=== PATIENT | female | born 1975 | race African-American/Black ===

== ENCOUNTER 2019-11-15 02:15 | Emergency (ER) | payer OTHER ==
[2019-11-15 02:50] VITALS: BMI 35.0
--- NOTE | 2019-11-15 04:17 | PDOC ---
Attending Attestation - Resident Resident Name: Mimi Bañuelos - ED Attending Attestation I have performed the following: I have examined & evaluated the patient, The case was reviewed & discussed with the resident, I agree w/resident's findings & plan - HPI HPI: 11/16/19 20:21 Pt comes for flu like symptoms. However afebrile in the ER - Physicial Exam PE: 11/15/19 07:01 Agree with resident exam Pt appears well. NAD Cough and cold; no focal findings HEENT normal lungs CTAB no flank pain neuro no deficits. - Medical Decision Making 11/15/19 06:18 Rapid strep and flu are pending Pt signed out to the day team for disposition.
[2019-11-15] MEDS ORDERED: DEXAMETHASONE SOD PHOSPHATE 10 MG/1 ML VIAL IM ONE (05:05)
[2019-11-15] MEDS ORDERED: IBUPROFEN 100 MG/5 ML UNIT DOSE CUPS PO ONE (05:05)
[2019-11-15] MEDS ORDERED: LIDOCAINE VISCOUS 2% ORAL/TOP 20 ML UNIT-DOSE CUP MM ONE (05:05)
[2019-11-15] MEDS ORDERED: LIDOCAINE VISCOUS 2% ORAL/TOP 20 ML UNIT-DOSE CUP ONE (05:10)
[2019-11-15] MEDS ORDERED: IBUPROFEN 600 MG TABLET (FP) PO ONE (05:11)
[2019-11-15] MEDS ORDERED: DEXAMETHASONE SOD PHOSPHATE 10 MG/1 ML VIAL ONE (05:11)
--- NOTE | 2019-11-15 05:52 | PDOC ---
History of Present Illness - General Chief Complaint: Sore Throat Stated Complaint: SORE THROAT Time Seen by Provider: 11/15/19 04:02 - History of Present Illness Initial Comments: 11/15/19 05:50 44 y/o F no significant medical hx, presenting with sore throat of 5 days duration. negative (fevers, cough, chills, fever, sick contacts) positive (pain with swallowing, right sided facial and neck throbbing pain). 11/15/19 06:29 Past History - Past Medical History Allergies/Adverse Reactions: Allergies Allergy/AdvReac Type Severity Reaction Status Date / Time No Known Allergies Allergy Verified 11/15/19 02:41 Home Medications: Ambulatory Orders NK [No Known Home Medication] 11/15/19 COPD: No - Immunization History Immunization Up to Date: Yes - Psycho Social/Smoking Cessation Hx Smoking History: Never smoked Have you smoked in the past 12 months: No Information on smoking cessation initiated: No Hx Alcohol Use: No Drug/Substance Use Hx: No Review of Systems - Review of Systems Constitutional: No: Chills, Fever HEENTM: No: Eye Pain, Blurred Vision Respiratory: No: Cough, Shortness of Breath Cardiac (ROS): No: Chest Pain, Lightheadedness ABD/GI: No: Nausea, Vomiting : No: Burning, Dysuria, Incontinence Musculoskeletal: No: Back Pain, Joint Pain Integumentary: No: Bruising, Change in Color Neurological: Yes: Headache *Physical Exam - Vital Signs Last Vital Signs Temp Pulse Resp BP Pulse Ox 98.8 F 89 20 148/97 98 11/15/19 02:29 11/15/19 02:29 11/15/19 02:29 11/15/19 02:29 11/15/19 02:29 - Physical Exam 11/15/19 05:46 GENERAL: Awake, alert, and fully oriented, in no acute distress HEAD: No signs of trauma, normocephalic, atraumatic EYES: PERRLA, EOMI, sclera anicteric, conjunctiva clear ENT: Auricles normal inspection, hearing grossly normal, nares patent, oropharynx clear without exudates. uvula deviation to the left no muffled voice/stridor. tonsilla +uvula erythema. NECK: Normal ROM, supple, tender right submental lymph nodes. JVD, or masses LUNGS: No distress, speaks full sentences, clear to auscultation bilaterally HEART: Regular rate and rhythm, normal S1 and S2, no murmurs, rubs or gallops, peripheral pulses normal and equal bilaterally. ABDOMEN: Soft, nontender, normoactive bowel sounds. No guarding, no rebound. No masses EXTREMITIES : Normal inspection, Normal range of motion, no edema. No clubbing or cyanosis NEUROLOGICAL: Cranial nerves II through XII grossly intact. Normal speech, no focal sensorimotor deficits SKIN: Warm, Dry, normal turgor, no rashes or lesions noted ED Treatment Course - Medications Given in the ED: ED Medications Discontinued Medications Generic Name Dose Route Start Last Admin Trade Name Dwayneq PRN Reason Stop Dose Admin Dexamethasone Sodium Phosphate 10 mg 11/15/19 05:05 11/15/19 05:17 Decadron Injection - IM 11/15/19 05:06 10 mg ONCE ONE Administration Ibuprofen 600 mg 11/15/19 05:05 11/15/19 05:33 Motrin Oral Suspension - PO 11/15/19 05:06 600 mg ONCE ONE Administration Lidocaine HCl 20 ml 11/15/19 05:05 11/15/19 05:17 Xylocaine 2% Viscous Oral - MM 11/15/19 05:06 20 ml ONCE ONE Administration Medical Decision Making - Medical Decision Making 11/15/19 05:52 44 y/o F no significant medical hx, presenting with sore throat of 5 days duration -strep throat -flu swab - Meds: viscous lidocaine, liquid motrin, decadron. 11/15/19 06:06 Pt feeling a little better after medications lab results pending. Discharge - Discharge Information Problems reviewed: Yes Clinical Impression/Diagnosis: Sore throat Condition: Stable Disposition: HOME - Admission No - Follow up/Referral Referrals: Jose Sarkar MD [Primary Care Provider] - - Patient Discharge Instructions Patient Printed Discharge Instructions: Sore Throat Additional Instructions: You were seen in the ER for a sore throat You may take ibuprofen 600mg every 6 hours for pain control; take 3 of the 200mg pills you have at home You may drink warm liquids and use cough drops for further pain control and comfort Follow up with your primary care doctor in the next 2-3 days. RETURN TO THE ER -if you develop fevers, chills, chest pain , coughing. -worsening of today's symptoms. - Post Discharge Activity
[2019-11-15 07:52] VITALS: BP 126/83; PULSE 78; TEMP 98.2
--- NOTE | 2019-11-15 07:57 | PDOC ---
*Physical Exam - Vital Signs Last Vital Signs Temp Pulse Resp BP Pulse Ox 98.2 F 78 20 126/83 99 11/15/19 07:00 11/15/19 07:00 11/15/19 07:00 11/15/19 07:00 11/15/19 07:00 - Physical Exam 11/15/19 08:21 Gen: aaox3, nad heent: posterior pharynx with mild erythema, no exudates, no lymphadenopathy, no stridor heart: +s1s2 reg lungs: cta b/l abd: soft, nt/nd +bs ext: no c/c/e ED Treatment Course - Medications Given in the ED: ED Medications Discontinued Medications Generic Name Dose Route Start Last Admin Trade Name Dwayneq PRN Reason Stop Dose Admin Dexamethasone Sodium Phosphate 10 mg 11/15/19 05:05 11/15/19 05:17 Decadron Injection - IM 11/15/19 05:06 10 mg ONCE ONE Administration Ibuprofen 600 mg 11/15/19 05:05 11/15/19 05:33 Motrin Oral Suspension - PO 11/15/19 05:06 600 mg ONCE ONE Administration Lidocaine HCl 20 ml 11/15/19 05:05 11/15/19 05:17 Xylocaine 2% Viscous Oral - MM 11/15/19 05:06 20 ml ONCE ONE Administration Medical Decision Making - Medical Decision Making 11/15/19 08:20 a/p: 44yo female with sore throat since sunday -pt signed out from the night team pending strep and flu swab -both strep and flu are neg -pt states sore throat improved with meds -pt with pharyngitis -redness, no exudates on posterior pharynx -stable for dc to home Discharge - Discharge Information Problems reviewed: Yes Clinical Impression/Diagnosis: Sore throat Condition: Stable Disposition: HOME - Admission No - Follow up/Referral Referrals: Jose Sarkar MD [Primary Care Provider] - - Patient Discharge Instructions Patient Printed Discharge Instructions: Sore Throat Additional Instructions: You were seen in the ER for a sore throat You may take ibuprofen 600mg every 6 hours for pain control; take 3 of the 200mg pills you have at home Follow up with your primary care doctor in the next 2-3 days. RETURN TO THE ER -if you develop fevers, chills, chest pain , coughing. -worsening of today's symptoms. - Post Discharge Activity
== END 2019-11-15 08:31 | disposition home or self-care (01) ==
LOC: JER 02:15
PROC: 3E0233Z Introduction of Anti-inflammatory into Muscle, Percutaneous Approach (ICD-10-PCS; principal; 2019-11-15)
DX: J02.9 Acute pharyngitis, unspecified (principal)
CPT/HCPCS: 87070; 87804; 87880; 96372; 99283-25; J1100

== ENCOUNTER 2021-04-22 23:09 | Emergency (ER) | payer OTHER ==
[2021-04-22 23:14] VITALS: BMI 34.7
[2021-04-23] MEDS ORDERED: ACETAMINOPHEN/CAFFEINE/BUTALBITAL 1 TAB PO ONE (01:29)
[2021-04-23] MEDS ORDERED: ACETAMINOPHEN/CAFFEINE/BUTALBITAL 1 TAB ONE (01:41)
[2021-04-23] MEDS ORDERED: METOCLOPRAMIDE HCL INJECTION 10 MG/2 ML VIAL IM ONE (03:33)
[2021-04-23] MEDS ORDERED: FLUTICASONE PROP 0.05% 16 GM NASAL SPRAY NS ONE (03:35)
[2021-04-23] MEDS ORDERED: METOCLOPRAMIDE HCL INJECTION 10 MG/2 ML VIAL ONE (03:36)
[2021-04-23 06:06] VITALS: BP 131/85; PULSE 70; TEMP 97.7
== END 2021-04-23 06:12 | disposition home or self-care (01) ==
LOC: JER 23:09
PROC: 3E023GC Introduction of Other Therapeutic Substance into Muscle, Percutaneous Approach (ICD-10-PCS; principal; 2021-04-22)
DX: G44.81 Hypnic headache (principal)
CPT/HCPCS: 70450-TC; 70486-TC; 99284-25